=== PATIENT | male | born 1955 | race Caucasian/White ===

== ENCOUNTER 2024-07-25 14:31 | Emergency (ER) | payer OTHER, SELFPAY ==
[2024-07-25 15:07] VITALS: BP 104/66; PULSE 102; RESP 16; TEMP 36.4; O2SAT 98; BMI 26.4
--- NOTE | 2024-07-25 17:33 | PC.NURSE ---
PT DOES HAVE A PICC LINE THAT WAS PLACED APPROXIMATELY 7 DAYS AGO. FLUSHES AND DRAWS.
[2024-07-25 17:34] VITALS: BP 107/68; PULSE 91; RESP 16; O2SAT 97
--- NOTE | 2024-07-25 18:17 | W.ED.SKABFB ---
HPI - Skin/Abscess/Foreign Bdy General: Chief complaint: Skin/Abscess/Foreign Body Stated complaint: follow up from rehab Time Seen by Provider: 07/25/24 17:10 Source: patient and family (sister) Mode of arrival: ambulatory Limitations: no limitations History of Present Illness: Patient is a 69-year-old male who is brought in by sister for multiple complaints. Patient reportedly left AMA from rehab facility where he was receiving IV antibiotics along with wound care. Per sister, patient had a major surgery where he had drain placed to the back of his right leg, she states that he had a staph infection and had this surgically debrided. He also had a laparoscopic gallbladder surgery, and has drain placed here as well. Patient reportedly did not like the rehab facility he was out so called sister at 3 AM yesterday to bring him down here to [place] that she could care for him. He states he is here for set up with surgeon, primary care, as well as wound care. He is not reporting fever, abdominal pain, chest pain, shortness of breath, and has no other symptoms to report at this time. He is stating he needs his IV dose of antibiotics today. Associated symptoms: Deny chills, fever(s), nausea or vomiting Related Data Allergies Allergy/AdvReac Type Severity Reaction Status Date / Time No Known Allergies Allergy Verified 07/25/24 15:07 Review of Systems General: Reports: 10 or more systems reviewed and unremarkable except in HPI and below Const: Reports: other (Present for wound care, establishment with PCP/surgeon/wound care); Denies: fever(s), chills or fatigue Eyes: Denies: change in vision ENMT: Denies: throat pain, ear or mastoid pain or nasal discharge Card: Denies: chest pain, palpitations, swelling of feet/ankles or lightheadedness Resp: Denies: dyspnea, productive cough or wheezing GI: Denies: abdominal pain, nausea, vomiting, diarrhea or constipation : Denies: flank pain, difficulty urinating, dysuria or urinary frequency Musc: Denies: neck pain, back pain or joint pain Skin/Breast: Denies: rash Neuro: Denies: headache(s), numbness in extremities or weakness in extremities Physical Exam Const: COMMON NORMALS: no acute distress, patient oriented x3 and no limitations GENERAL APPEARANCE: cooperative, comfortable and well developed ORIENTATION/CONSCIOUSNESS: Yes awake, Yes oriented to person, Yes oriented to place and Yes oriented to time HENMT: COMMON NORMALS: normocephalic, atraumatic and hearing grossly normal bilaterally HEAD & SCALP: normocephalic and atraumatic Eye: COMMON NORMALS: Equal, round and reactive pupils present, EOMs intact bilaterally and conjunctivae normal CONJUNCTIVA: Yes conjunctivae normal PUPIL: Yes Equal, round and reactive pupils present Neck/C-Spine: COMMON NORMALS: full ROM, supple and no JVD Resp: COMMON NORMALS: normal respiratory effort, No retractions, No use of accessory muscles and clear to auscultation bilaterally AUSCULTATION: clear to auscultation bilaterally Cardio: COMMON NORMALS: no JVD, regular rate, regular rhythm, No clicks present (Cardio), No murmurs present (Cardio) and No rub (Cardio) RATE: regular rate RHYTHM: regular rhythm GI: COMMON NORMALS: Normal to inspection, nondistended, normoactive bowel sounds present, Soft to palpation and non-tender AUSCULTATION: Yes normoactive bowel sounds PALPATION: Yes Soft to palpation RECTAL EXAM: Yes deferred OTHER: Well-healing laparoscopic incisions to abdomen, presence of drain to right lower quadrant Extremity: COMMON NORMALS: normal to inspection, full ROM, capillary refill normal, no joint enlargement and no clubbing, cyanosis or edema NARRATIVE EXTREMITY EXAM: Dressing to right lower extremity Neuro: COMMON NORMALS: patient oriented x3, moves all extremities, no focal motor deficits and no sensory deficits noted SENSORIUM/ORIENTATION: Yes oriented to person, Yes oriented to place and Yes oriented to time Skin: COMMON NORMALS: no rashes or lesions noted GENERAL SKIN EXAM: no rashes or lesions noted Course Vital Signs: Vital signs: Vital Signs Temperature 97.6 F 07/25/24 15:07 Pulse Rate 91 07/25/24 17:34 Respiratory Rate 16 07/25/24 17:34 Blood Pressure 107/68 07/25/24 17:34 Pulse Oximetry 97 07/25/24 17:34 Oxygen Delivery Me thod Room Air 07/25/24 17:34 MDM - Skin/Abscess/Foreign Bdy Medicial Decision Making Patient presented with multiple complaints, he had an aide from his rehab facility due to not liking it and wanted set up with primary care, general surgery, as well as wound care doctor here. Informed him that we are unable to assume this due to him receiving surgery as well as postoperative care just yesterday to different facility, and he needs to go back to this facility to resume his medications and wound care. We did give dose of cefazolin here, and there is no reason for admit to our hospital at this time. He had 0 complaints and his wounds did appear to be well-healing. No radiology studies performed this visit Discharge Plan Discharge Patient Disposition: Home Clinical Impression: Post-operative state Condition: Stable Discharge Orders: Discharge ED (Routine); Ordered 07/25/24 Ordered By: Lennox Mcclain Activity Restrictions/Additional Instructions: Please follow back up with [facility] tomorrow to continue your postoperative treatment. 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
[2024-07-25 18:36] VITALS: BP 110/67; PULSE 92; RESP 16; O2SAT 100
[2024-07-25] MEDS: ceFAZolin 2,000 mg SDV 2000 MG IVP (18:39)
== END 2024-07-25 19:14 | disposition home or self-care (01) ==
PROVIDERS: Emergency Provider Physician Assistant
DX: Z98.890 Other specified postprocedural states (principal)
CPT/HCPCS: 96374; 99284; J0690